=== PATIENT | female | born 1935 | race Caucasian/White ===

== ENCOUNTER → 2016-05-18 | Outpatient (REF) | payer MEDICARE ==
[2016-05-18 15:26] LABS: BASOPHILS % (AUTO) 0 % (0-2); EOSINOPHILS # (AUTO) 0.1 10^3uL; EOSINOPHILS % (AUTO) 1 % (0-4); LYMPHOCYTES # (AUTO) 2.2 X10^3; MEAN CORPUSCULAR HEMOGLOBIN 32.2 PG (26.0-34.0); MEAN CORPUSCULAR HGB CONC 34.7 g/dL (31.0-37.0); MEAN CORPUSCULAR VOLUME 93 FL (80-100); MEAN PLATELET VOLUME 10.6 FL (6.0-9.5); MONOCYTES # (AUTO) 0.6 X10^3; MONOCYTES % (AUTO) 8 % (3-11); NEUTROPHILS # (AUTO) 4.1 X10^3; NEUTROPHILS % (AUTO) 59 % (51-67); PLATELET COUNT 227 10^3uL (150-450); WHITE BLOOD COUNT 7.06 10^3uL (4.0-11.0)
[2016-05-18 15:52] LABS: ALBUMIN 4.1 g/dL (3.4-5.0); ANION GAP 10.9 MEQ/L (3-15); CALCULATED IONIZED CALCIUM 3.6 mg/dL (3.8-4.6); TOTAL PROTEIN 8.5 g/dL (6.4-8.5)
[2016-05-22 15:55] LABS: LEVETIRACETAM LEVEL 59.6 mcg/mL
== END ==
LOC: LAB 15:05
PROVIDERS: ATTEND Family Medicine
DX: G40.209 Localization-related (focal) (partial) symptomatic epilepsy and epileptic syndromes with complex partial seizures, not intractable, without status epilepticus (principal); I48.0 Paroxysmal atrial fibrillation; J43.2 Centrilobular emphysema; E56.8 Deficiency of other vitamins; F02.80 Dementia in other diseases classified elsewhere, unspecified severity, without behavioral disturbance, psychotic disturbance, mood disturbance, and anxiety; G89.29 Other chronic pain; Z79.899 Other long term (current) drug therapy
CPT/HCPCS: 80053; 80162; 80177; 82306; 82607; 82746; 84443; 85025

== ENCOUNTER → 2016-06-08 | Outpatient (CLI) | payer MEDICARE | LOC: RAD 15:12 | PROVIDERS: ATTEND Family Medicine | DX: M25.521 Pain in right elbow (principal) | CPT/HCPCS: 73080 ==

== ENCOUNTER → 2016-07-06 | Outpatient (CLI) | payer MEDICARE ==
[~2016-07-06] MED LIST: AGM500T GT; BACL10TA PO; BCL10T PO; CITA20TA12 PO; CITA40TA19 PO; CPR500T PO; D50KC PO; DGX.125T PO; DOCU100C8 PO; FERR325T5 PO; HYDR-3708 PO; HYDR-3882 PO; IBUP-15 PO; IPRA3AMP11 INH; LEVE250T18 PO; LEVE500T PO; MAGN400O7 PO; MIRA25TA PO; MORPHINE PUMP; Morphine; NITR100C3 PO; POLY17PO6 PO; POTA10CA2 PO; TIOT18CA IH
[2016-07-06 10:47] LABS: BILIRUBIN,URINE Negative (Negative); CLARITY,URINE Turbid; COLOR,URINE Yellow; GLUCOSE, URINE (UA) Negative (Negative); LEUKOCYTE ESTERASE ,URINE 3+ (Negative); PH,URINE 6.5 (5.0 - 8.0); UROBILINOGEN,URINE 0.2 mg/dL (0.2-1.0)
[2016-07-06 11:15] LABS: URINE CENTRIFUGED VOLUME 12 mL
== END ==
LOC: LAB 10:14
PROVIDERS: ATTEND Family Medicine
DX: R30.0 Dysuria (principal)
CPT/HCPCS: 81003; 81015; 87077; 87088; 87186

== ENCOUNTER 2016-07-13 17:31 | Inpatient (IN) | payer MEDICARE ==
[~2016-07-13] VITALS: Ht 160 cm; Wt 60.8 kg
--- NOTE | 2016-07-13 17:15 | NUR ---
Pt admitted to [facility] via w/c accompanied by daughter in law. Skin warm, dry, intact. Resprs nonlabored, even on RA. Pt denies pain. Daughter in law states pt has been increasingly confused over the past week. See admission database for assessment info.
[~2016-07-13 17:31] MED LIST changes: -CITA40TA19 PO; -ERGO2000 PO; -FLC1T PO; -LEVE250T18 PO; -MEMA28CA PO; -NITR100C3 PO; -Oxygen
--- OUTSIDE RECORDS SUMMARY | 2016-07-13 17:34 | XMS REPORT | Continuity of Care Document ---
Author Author [facility] Organization [facility] Address Unknown Phone Unavailable Care Team Providers Care Family Caseworker Name Role Phone CYNTHIA ANTONIO MD PCP [phone] Insurance Providers Payer Name Policy Number Subscriber Name Relationship Medicare A And B [id number] Sally Uribe 18 Self / Same As Patient [employer] Mc[employer] Supp [id number] Sally Uribe 18 Self / Same As Patient Chief Complaint and Reason for Visit Chief Complaint Genitourinary Complaint Reason for Visit [id number] Urinary tract infection Problems Medical Problems Problem Onset Date Status Acute cystitis 08/22/2012 Resolved Constipation 08/22/2012 Active Chronic low back pain 10/19/2012 Active Urinary retention ~10/27/2014 Active COPD (chronic obstructive pulmonary disease) Unknown Active Inability to urinate Unknown Active Urinary tract infection Unknown Active Medications Medication Dose Route Sig Days/Qty Instructions Order Date Discontinued Date Status Baclofen 10 Mg ORAL THREE TIMES A DAY 08/22/12 10/19/12 Discontinued [Morphine] 08/22/12 10/19/12 Discontinued Amoxicillin/Clavulanate K 875 Mg GT TWICE A DAY 6 Qty One po BID w/food x 3 days 08/22/12 10/19/12 Discontinued Baclofen (Lioresal) 10 Mg ORAL THREE TIMES A DAY 10/19/12 Active Hydrocodone Bit/Acetaminophen 1 Tab ORAL NEEDED 10/19/12 Discontinued [Morphine Pump] 10/19/12 Active Hydrocodone Bit/Acetaminophen 1 Each ORAL EVERY 4HRS PRN PAIN Active Tiotropium [place] 18 Mcg RESPIRATORY (INHALATION) DAILY 10/27/14 Active Citalopram Hydrobromide 20 Mg ORAL DAILY 10/27/14 Active Ciprofloxacin 500 Mg ORAL TWICE A DAY 10 Qty 10/31/14 Active Social History No social history. Hospital Discharge Instructions No hospital discharge instructions. Plan of Care Discharge Date 10/31/14 1:15pm Disposition 01 HOME OR SELF-CARE Instructions/Education Provided Urinary Tract Infection in Women (ED) Prescriptions See Medications Section Referrals CYNTHIA ANTONIO MD Additional Instructions/Education Corea catheter out tomorrow after antibiotics have time to start to work. See Dr. House or return to ED if pain worsens or changes. You may need to see a urologist due to the pain. Some of your test results may not be complete prior to your leaving the Emergency Department. The Emergency Department is not authorized to give test results over the phone. Please contact the doctor's office listed in this packet of information for your final results. Follow up with your primary care physician or return to the Emergency Department for worsening or worrisome symptoms. * Emergency Department phone number: [phone], x [phone] MEDICAL RECORD If you need copies of your X-rays, call [phone]. If you need copies of your medical record, including lab results, a signed authorization for release of records will be required. A telephone call for release of Health Information is not allowed. BILLING Billing can sometimes be confusing and frustrating. To help avoid confusion in the future, please take a moment to acquaint yourself with the billing parties for services. SERVICE BILLING [facility] Physician Services [facility] X-[facility] Patients will receive bills for services from the appropriate provider. If you have any questions about your [facility] bill, our staff will be happy to assist you. Please call [phone], and ask for the billing department. THANK YOU for choosing [facility] as your emergency care provider! Functional Status No functional status results. Allergies, Adverse Reactions, Alerts Allergen Type Severity Reaction Status Last Updated No Known Drug Allergies Active 10/31/14 Immunizations No immunization records. Vital Signs Acute Vital Signs Vital Response Date/Time Temperature (Fahrenheit) 98.2 Pulse 94 bpm Respirations 18 Height 5 ft 7 in Weight 144 lb Body Mass Index 22.0 kg/m^2 Results Test Source Date Result Interp. Ref. Range Comments Alanine Aminotransferase (ALT/SGPT) August 22, 2012 7:45am 27 U/L L 30-65 Albumin August 22, 2012 7:45am 4.7 G/DL N 3.4-5.0 Albumin/Globulin Ratio August 22, 2012 7:45am 4.4 H 1.1-1.8 Alkaline Phosphatase August 22, 2012 7:45am 64 U/L N 38-126 Amylase Level August 22, 2012 7:45am 58 U/L N 25-115 Aspartate Amino Transf (AST/SGOT) August 22, 2012 7:45am 32 U/L N 15-37 BUN/Creatinine Ratio August 22, 2012 7:45am 13 N 10-20 Basophils # (Auto) August 22, 2012 7:45am 0.0 10^3/uL Basophils (%) (Auto) August 22, 2012 7:45am 0 % N 0-2 Blood Urea Nitrogen August 22, 2012 7:45am 8 MG/DL N 7-18 Calcium Level August 22, 2012 7:45am 9.6 MG/DL N 8.8-10.8 Calcium/Ionized Calcium Ratio August 22, 2012 7:45am 3.00 mg/dL Calculated Osmolality August 22, 2012 7:45am 268 MOSM/L L 280-300 Carbon Dioxide Level August 22, 2012 7:45am 30 MMOL/L H 22-29 Chloride Level August 22, 2012 7:45am 96 MMOL/L L 98-108 Creatinine August 22, 2012 7:45am 0.60 mg/dL N 0.6-1.2 Eosinophils # (Auto) August 22, 2012 7:45am 0.1 10^3/uL Eosinophils (%) (Auto) August 22, 2012 7:45am 1 % N 0-4 Estimat Glomerular Filtration Rate August 22, 2012 7:45am 117.3 Estimated GFR (Non- August 22, 2012 7:45am 96.9 Glucose Level August 22, 2012 7:45am 120 MG/DL H 70-110 Hematocrit August 22, 2012 7:45am 41.30 % N 35.00-45.00 Hemoglobin August 22, 2012 7:45am 14.3 g/dL N 12.0-15.5 Lipase August 22, 2012 7:45am 70 U/L N 23-300 Lymphocytes # (Auto) August 22, 2012 7:45am 1.3 X 10^3 Lymphocytes (%) (Auto) August 22, 2012 7:45am 14 % L 20-46 Mean Corpuscular Hemoglobin August 22, 2012 7:45am 34.0 PG N 26.0-34.0 Mean Corpuscular Hemoglobin Concent August 22, 2012 7:45am 34.6 g/dL N 31.0-37.0 Mean Corpuscular Volume August 22, 2012 7:45am 98 FL N 80-100 Mean Platelet Volume August 22, 2012 7:45am 9.6 FL H 6.0-9.5 Monocytes # (Auto) August 22, 2012 7:45am 0.4 X 10^3 Monocytes (%) (Auto) August 22, 2012 7:45am 4 % N 3-11 Neutrophils # (Auto) August 22, 2012 7:45am 7.3 X 10^3 Neutrophils (%) (Auto) August 22, 2012 7:45am 81 % H 51-67 Platelet Count August 22, 2012 7:45am 242 10^3/uL N 150-450 Potassium Level August 22, 2012 7:45am 3.7 MMOL/L N 3.5-5.1 Red Blood Count August 22, 2012 7:45am 4.20 10^6/uL N 4.00-5.00 Red Cell Distribution Width August 22, 2012 7:45am 12.6 % N 11.8-15.6 Sodium Level August 22, 2012 7:45am 139 MMOL/L N 135-150 Total Bilirubin August 22, 2012 7:45am 0.7 MG/DL N 0.1-1.0 Total Protein August 22, 2012 7:45am 9.1 G/DL H 6.4-8.5 Urine Bacteria October 31, 2014 12:00pm 1+ /HPF Urine collection method Catheter Urine Bilirubin October 31, 2014 12:00pm Negative Negative Urine collection method Catheter Urine Blood July 08, 2013 11:00am Negative Negative Urine Clarity October 31, 2014 12:00pm Cloudy Urine collection method Catheter Urine Collection Type October 31, 2014 12:00pm Clean catch Urine collection method Catheter Urine Color October 31, 2014 12:00pm Yellow Urine collection method Catheter Urine Glucose (UA) October 31, 2014 12:00pm Negative Negative Urine collection method Catheter Urine Ketones October 31, 2014 12:00pm Negative Negative Urine collection method Catheter Urine Leukocyte Esterase October 31, 2014 12:00pm 2+ H Negative Urine collection method Catheter Urine Mucus October 31, 2014 12:00pm 2+ H Urine collection method Catheter Urine Nitrite October 31, 2014 12:00pm Negative Negative Urine collection method Catheter Urine Protein October 31, 2014 12:00pm Negative Negative Urine collection method Catheter Urine RBC October 31, 2014 12:00pm None seen /HPF Urine collection method Catheter Urine RBC (Auto) October 31, 2014 12:00pm Negative Negative Urine collection method Catheter Urine Specific [place] October 31, 2014 12:00pm 1.010 1.005-1.030 Urine collection method Catheter Urine Squamous Epithelial Cells October 31, 2014 12:00pm 20-50 /LPF Urine collection method Catheter Urine Urobilinogen October 31, 2014 12:00pm 0.2 mg/dL 0.2-1.0 Urine collection method Catheter Urine WBC October 31, 2014 12:00pm 10-20 /HPF H Urine collection method Catheter Urine pH October 31, 2014 12:00pm 7.0 5.0 - 8.0 Urine collection method Catheter Volume Urine Centrifuged October 31, 2014 12:00pm 12 ml Urine collection method Catheter White Blood Count August 22, 2012 7:45am 9.05 10^3/uL N 4.0-11.0 Urine Culture Urine-Clean Catch July 08, 2013 11:00am Procedures No known history of procedures. Encounters Encounter Location Date/Time Departed Emergency Room [facility] 10/31/14 11:20am Departed Emergency Room [facility] 10/27/14 3:21am Recent Diagnosis
--- NOTE | 2016-07-13 18:45 | NUR ---
20g in LFA initiated by Jasmeet Bagley RN on 2nd attempt after 2 attempts by Courtney Rebolledo RN. Pt rests in bed at this time. Denies needs. Fall precautions in place. Close to nurses station for frequent monitoring.
[2016-07-13] MEDS ORDERED: POLYETHYLENE GLYCOL 17 GM (MIRALAX) PACKET PO PRN (19:20)
[2016-07-13] MEDS ORDERED: ONDANSETRON 4 MG (ZOFRAN) ORAL DISSOLVE TAB PO PRN (19:20)
[2016-07-13] MEDS ORDERED: CALCIUM CARBONATE CHEWABLE 300 MG (TUMS) TABLET PO PRN (19:20)
[2016-07-13] MEDS ORDERED: PROMETHAZINE HCL INJ 12.5 MG in SODIUM CHLORIDE 25 ML IV PRN (19:20)
[2016-07-13] MEDS ORDERED: MAG HYDROX/AL HYDROX/SIMETH 200-200-20/5 ML (MAG-AL PLUS) 30 ML UDC PO PRN (19:20)
[2016-07-13] MEDS ORDERED: MAGNESIUM HYDROXIDE 80MG/ML (MILK OF MAGNESIA) 30 ML UDC PO PRN (19:20)
[2016-07-13] MEDS ORDERED: SODIUM CHLORIDE 100 ML ONE (19:30)
[2016-07-13] MEDS ORDERED: MEROPENEM 1 GM IV ONE (19:30)
[2016-07-13] MEDS ORDERED: CITA40TA19 PO (19:52)
[2016-07-13] MEDS ORDERED: LEVE250T18 PO (19:57)
[2016-07-13] MEDS ORDERED: NITR100C3 PO (19:59)
[2016-07-13] MEDS: MEROPENEM 1 GM in SODIUM CHLORIDE 100 ML IV SCH (20:02)
[2016-07-13] MEDS ORDERED: ALBUTEROL/IPRATROPIUM 3MG-0.5MG/3ML (DUONEB) NEB VIAL INH PRN (21:20)
--- NOTE | 2016-07-13 21:22 | History and Physical (E) ---
History & Physical PCP: Evangelist Bowen MD CC: UTI, falls at home. ANNAMARIA Uribe is a 80 year old female admitted from clinic 07/13 where she presented with worse mental status, falls at home, poor appetite, increased confusion. She has been treated outpatient for UTI that grew E. coli. She was switched from Bactrim to nitrofurantoin based on sensitivity. She had follow-up in clinic today. WBC 12.26 with no bandemia. Chemistry stable. Digoxin 1.10. New urine was not checked. Because of falls at home, CT head, pelvis, L-spine were checked and all were negative for acute changes. However, because of continual decline, PCP called asking for admission. On arrival to unit, vitals stable but she is somnolent. She does not provide any history. Ibxwzems-rk-ukf provides history. Had UTI symptoms about 1 week ago but on Saturday, changed because of culture results. Today she was taken to [place] [facility] for refill of morphine. On the drive back from [place], agvifndn-ql-thd noticed marked increase in confusion. Vkbhgyjq-qw-ocp got her back in clinic with PCP late this afternoon and she was looking more and more ill, though vitals were stable. Labs as noted below. For this concerns, she was admitted. Has been living in an apartment independently with her dog. But she has fallen multiple times. Mental status has declined significantly over the last several days but even before that she had a general decline in memory and was falling more at home. PMH * Chronic pain issues * Scoliosis * Arthritis * Spinal stenosis * Irritable bowel * Urinary retention * COPD--sees Dr. Hernandez * ONI * Tobaccoism * Anxiety * Depression * Chronic back pain on morphine pain pump * pneumonia * atrial fibrillation with RVR * aspiration PSH * Hysterectomy--1978 * Right knee replacement--2005 * Pain pump placement--2006, again in December 2015. * Bronchoscopy--about a month ago with Dr. Hernandez. * T&A as a child ALLERGIES: Please see list at end of report. HOME MEDICATIONS: Please see list at end of report. FH Mother lung disease. Father unknown. Sibling from DM. Another sister from a traumatic . A living sister has COPD and has survived breast cancer. Daughter from [place]-Spatz syndrome, son with alcoholism, son with IDDM, and daughter that was still-born. SH Lives now with son and mwkmkci-qg-flt. 1 ppd x 60 years. No alcohol or drug use. ROS Unable to obtain from patient. Obtained from ncrdcagc-ev-dxe. CONSTITUTION: Weight stable. No reported fever. HEENT: No reports of vision or hearing changes. PULM: Chronic cough. GI: Chronic constipation. PSYCH: Decreased level of consciousness, increased confusion. OBJECTIVE Vital Signs Date Time Temp Pulse Resp B/P Pulse Ox O2 Delivery O2 Flow Rate FiO2 07/13/16 18:11 98.3 72 18 84 Room air GEN: Awake, alert, oriented, NAD HEENT: EOMI, PERRL, moist oral mucosa. CV: RRR S1 S2 normal with no murmur LUNGS: CTA B ABD: Soft, NT/ND with normal bowel sounds. EXTR: No C/C/E. Normal peripheral pulses. INTEG: No rash. NEURO: No focal motor neuro deficit. Weight: 61.7 kg LABS: Reviewed MICRO SPEC #: [id number] BREANA: 07/06/16 STATUS: COMP REQ #: [id number] RECD: 07/06/[address]: EVANGELIST BOWEN MD Order Location: LAB SOURCE: URINE DESCRIPTION: CLEAN CATC Procedure Result Verified URINE CULTURE Final Verified 07/09/16-07 AM Source: URINE / CLEAN CATCH Order Location: LABORATORY Site: [facility] Received : 07/06/16 16:33 Order#: [id number] Urine Culture FINAL 07/09/16 07:00 S Escherichia coli >100,000 cfu/ml This strain produces extended spectrum beta lactamase ( ESBL) E. coli Antibiotic SERENE INT Amikacin <=2 S Ampicillin >=32 R Ampicillin/sulbactam 16 I Cefazolin >=64 R Ceftriaxone >=64 R Ciprofloxacin >=4 R Gentamicin >=16 R Meropenem <=0.25 S Nitrofurantoin <=16 S Trimethoprim/Sulfa >=320 R S=SUSCEPTIBLE I=INTERMEDIATE R=RESISTANT S-DD= SUSCEPTIBLE, DOSE DEPENDENT IMAGING 07/13/16 LUMBOSACRAL SPINE 4 VIEWS OR > EXAM: LUMBOSACRAL SPINE 4 VIEWS OR > INDICATION: Fall. Back pain. COMPARISON: Lumbar spine CT without contrast 2012. Abdominal radiographs 06/20/2015. FINDINGS: There are five lumbar type vertebral bodies. There is moderate to advanced left apex lumbar curvature centered at L3-L4. Stable moderate rightward listhesis of L2 on L3. Vertebral body heights appear maintained. There are laminectomies at L3-L5. Moderate to advanced degenerative endplate changes most marked at L3-L5. Intrathecal pain pump. The catheter tip remains at the level of L1, similar to the prior exam. The course of the catheter appears intact. Coarse arterial calcifications. Mild compression deformities of the T9 and T10 vertebral bodies appear to be new since the 06/20/2015 abdominal radiographs. Comparison is limited by differences in technique and positioning. IMPRESSION: 1. No acute radiographic findings in the lumbar spine. There are moderate to advanced spondylotic changes. 2. Mild compression deformities of the T9 and T10 vertebral bodies appear to be new since the 06/20/2015 abdominal radiographs. This could be confirmed with thoracic spine MRI without contrast. 07/13/16 CT HEAD WO PROCEDURE: CT head without contrast. TECHNIQUE: Multiple contiguous axial images were obtained through the brain without the use of intravenous contrast. INDICATION: Multiple falls. COMPARISON: 06/28/2015. FINDINGS: There is generalized cortical atrophy. Ventricles are not dilated. There is no intracranial hemorrhage. No extra-axial fluid collection. Basal cisterns are clear. CP angles appear normal. Pituitary is not enlarged. The mastoid air cells are clear. Paranasal sinuses are clear where visualized. Bone windows show no calvarial fractures. IMPRESSION: Generalized cortical atrophy with no acute intracranial abnormalities. 07/13/16 PELVIS INDICATION: Fall. Complaining of left hip pain. FINDINGS: Bony pelvis is intact. SI joints are symmetrical with moderate sclerosis. Pubic symphysis is in good alignment. Femoral heads are in normal articulation bilaterally. No fractures of the hips demonstrated. Moderate degenerative changes noted. IMPRESSION: Diffuse degenerative changes with no evidence of acute fracture. ASSESSMENT Sally Uribe is a 80 year old female admitted from clinic 07/13 with encephalopathy in the setting of recent diagnosis of UTI due to ESBL E coli. She had been treated for 4 days with nitrofurantoin but had not been improving clinically. Though she did not meet sepsis criteria there was concern for this on admit. She has numerous chronic problems. PLAN * Possible Sepsis: Monitor labs and vitals closely. Blood culture pending. Empiric meropenem. * UTI due to ESBL E coli: Treated outpatient with nitrofurantoin but not improving. Culture as noted. New UA. Check CRP. Meropenem. * Encephalopathy: Attributed to UTI, possible sepsis. Check TSH, ammonia. Monitor labs. Maintain day/night orientation. * Dehydration: Clinical diagnosis. NS maintenance x 1 L. * F/E/N: Cardiac diet. Pudding thick liquids. Peripheral IV x 2. I&O, daily weight. PICC placed 06/24. Removed connolly 06/25. * Prophylaxis: Enoxaparin * Code Status: DNR. * Disposition: ICU status for above issues initially, then transferred to med/ surg once off dopamine. Anticipate need for skilled care. Family touring regional facilities. Possible D/C in 1-2 though this may need to be extended a bit in light of recent seizure and persistent urinary retention. CHRONIC ISSUES * Dysphagia: Mechanical soft, nectar thick liquids. * Tobacco abuse: Nicotine * Vitamin D Deficiency: History of taking ergocalciferol. Review history form PCP's records. * Muscle Spasms: Hold baclofen * Anxiety: Citalopram * Depression: Citalopram * Atrial fibrillation: Digoxin * Chronic Pain: Morphine pump. Avoid narcotic escalation. * Seizure Disorder: Levetiracetam * IBS: Observe. Bowel regimen. * ONI: Home CPAP * COPD: Not acutely exacerbated. Duoneb PRN. Review home regimen,. * Constipation: Bowel regimen * Chronic Back Pain: Morphine pump. [place] PRN. Monitor narcotic use closely. Naloxone PRN over-sedation. * Bladder Spasms, Retention: Takes mirabegron at home but ipmepend-rq-lgz feels this doesn't work. Trial of solifenacin which she has taken previously. Allergies/Home Medications Allergies: Coded Allergies: aspirin (Verified Allergy, Intermediate, 06/20/15) Reported Home Medications Scheduled ([Morphine Pump]) 1 UD (Reported) Baclofen (Baclofen) 10 MG PO BID (Reported) Citalopram Hydrobromide (Celexa) 40 MG PO DAILY (Reported) Digoxin (Lanoxin) 0.125 MG PO DAILY Ergocalciferol (Vitamin D2) 50,000 UNITS PO Tu@09 Levetiracetam (Keppra) 250 MG PO BID (Reported) Magnesium Hydroxide (Milk of Magnesia 400mg/5ml) 30 ML PO DAILY (Reported) Nitrofurantoin/Nitrofuran Mac (Macrobid) 100 MG PO DAILY (Reported) Polyethylene Glycol 3350 (Miralax) 17 GM PO DAILY (Reported) Scheduled PRN Docusate Sodium (Docusate Sodium) 100 MG PO DAILY PRN PRN CONSTIPATION (Reported ) Hydrocodone Bit/Acetaminophen (Hydrocodon-Acetaminophen 10-325) 1-2 TAB PO Q4H PRN PRN PAIN (Reported) Discontinued Medications Albuterol/Ipratropium (Duoneb 3mg-0.5mg/3ml) 3 ML INH BID Discontinued Reason: Course completed Citalopram Hydrobromide (Celexa) 20 MG PO DAILY (Reported) Discontinued Reason: Dose changed Ferrous Sulfate (Ferrous Sulfate) 325 MG PO BID WITH MEALS Discontinued Reason: Course completed Ibuprofen (Motrin IB) 200-400 MG PO Q6H PRN PRN PAIN (Reported) Discontinued Reason: Course completed Levetiracetam (Keppra) 500 MG PO BID Discontinued Reason: Dose changed Copies to: End of Report . AUGUSTO MARTIN MD Jul 13, 2016 19:24
[2016-07-14 00:21] VITALS: BP 109/50
[2016-07-14 04:10] VITALS: BP 110/56
[2016-07-14 06:03] LABS: BASOPHILS % (AUTO) 0 % (0-2); EOSINOPHILS # (AUTO) 0.1 10^3uL; EOSINOPHILS % (AUTO) 1 % (0-4); MEAN CORPUSCULAR HGB CONC 33.6 g/dL (31.0-37.0); MEAN CORPUSCULAR VOLUME 93 FL (80-100); MONOCYTES # (AUTO) 0.7 X10^3; MONOCYTES % (AUTO) 8 % (3-11); NEUTROPHILS # (AUTO) 7.2 X10^3; NEUTROPHILS % (AUTO) 80 % (51-67); PLATELET COUNT 160 10^3uL (150-450); WHITE BLOOD COUNT 9.04 10^3uL (4.0-11.0)
[2016-07-14 06:22] LABS: MEAN CORPUSCULAR HEMOGLOBIN 31.3 PG (26.0-34.0)
[2016-07-14] MEDS: MEROPENEM 1 GM in SODIUM CHLORIDE 100 ML IV SCH ×2 (06:34→19:17)
[2016-07-14 06:58] LABS: ALBUMIN 2.8 g/dL (3.4-5.0); ANION GAP 11.9 MEQ/L (3-15)
--- NOTE | 2016-07-14 07:32 | NUR ---
Patient rests in bed throughout night with minimal needs. Difficult to rouse during night. Up to bathroom x2, unable to obtain UA d/t missed hat. No reports of pain throughout night. No needs at this time.
[2016-07-14 07:57] VITALS: BP 103/50
--- NOTE | 2016-07-14 08:26 | Diagnostic Imaging Report ---
INDICATION: Dyspnea and hypoxia. Comparison made with prior examination from 06/25/15. FINDINGS: There's cardiomegaly. There is some venous congestion. There is bibasilar atelectasis and/or pneumonitis on the left. There is some more nodular appearing densities in the left midlung. There is no pneumothorax. The mediastinum is unremarkable. IMPRESSION: Bibasal atelectasis and/or pneumonitis right greater than left. Cardiomegaly and moderate central pulmonary venous congestion. Questionable nodular appearing densities in the left midlung. While these may be infiltrates possibility of underlying mass cannot be excluded. Further evaluation with contrast-enhanced CT chest is recommended. Dictated by: Dictated on workstation # [id number]
[2016-07-14 09:26] LABS: BILIRUBIN,URINE Negative (Negative); CLARITY,URINE Cloudy; GLUCOSE, URINE (UA) Negative (Negative); LEUKOCYTE ESTERASE ,URINE 1+ (Negative); PH,URINE 5.5 (5.0 - 8.0); UROBILINOGEN,URINE 0.2 mg/dL (0.2-1.0)
[2016-07-14 09:29] LABS: COLOR,URINE Dark Yellow
--- NOTE | 2016-07-14 09:35 | NUR ---
Pt. sleeping with 83% O2 sat's. Replaced O2 @ 2L nc.
[2016-07-14] MEDS: ACETAMINOPHEN 325 MG TAB (TYLENOL) PO PRN ×2 (09:39→20:23)
[2016-07-14] MEDS: CITALOPRAM 40 MG (CELEXA) TABLET PO SCH (09:39)
[2016-07-14] MEDS: DIGOXIN 0.125 MG (LANOXIN) TAB PO SCH (09:39)
[2016-07-14] MEDS: LEVETIRACETAM 250 MG PO SCH ×3 (09:39→20:22)
[2016-07-14] MEDS: ENOXAPARIN 30 MG/0.3 ML (LOVENOX) SYR SC SCH (09:40)
[2016-07-14] MEDS: NICOTINE 21 MG (NICODERM) PATCH TD SCH (09:40)
[2016-07-14 10:06] LABS: URINE CENTRIFUGED VOLUME 12 mL
[2016-07-14 11:56] VITALS: BP 103/48
[2016-07-14] MEDS ORDERED: FLC1T PO (12:04)
[2016-07-14] MEDS ORDERED: MEMA28CA PO (12:08)
[2016-07-14] MEDS ORDERED: ERGO2000 PO (12:08)
[2016-07-14] MEDS ORDERED: Oxygen (12:08)
--- NOTE | 2016-07-14 12:11 | NUR ---
Med Rec completed via call reviewing medications with Danisha Uribe.
[2016-07-14 15:48] VITALS: BP 113/51
--- NOTE | 2016-07-14 16:26 | Progress Note (E) ---
Progress Note SUBJECTIVE Since admit, vitals stable but has been on oxygen overnight. Room air this AM. CBC stable. No bandemia. Chemistry stable but CTP high at 14.10. Ammonia 14.5. UA did show LE and WBC so culture pending. On meropenem for concern of unresolved UTI prior to admit. On exam, resting in bed but stirs better to exam , is able to answer questions and follow commands. Groggy but oriented to person , place, situation. Disoriented to date but oriented to year. Speech is slow but clear. Updated her on findings, plan of care. OBJECTIVE Vital Signs Date Time Temp Pulse Resp B/P Pulse Ox O2 Delivery O2 Flow Rate FiO2 07/14/16 15:48 97.0 55 18 113/51 94 Room air 07/14/16 07:57 2.50 I & O 07/13/16 07/14/16 Cumulative From/Thru 19:00 07:00 07/13/16 18:11 - 07/14/16 06:35 Intake Total 300 ml 300 ml Output Total 100 ml 100 ml Balance 200 ml 200 ml GEN: Somnolent but stirs more readily to exam. More interactive and following commands, answering questions. HEENT: Eyes closed. Dry oral mucosa. Edentulous but has dentures. CV: Regular with II/ systolic murmur at LSB. LUNGS: Diminished bases without R/R/W. ABD: Soft, no apparent tenderness, no distension. Active bowel sounds. EXTR: Trace BLE edema. INTEG: Age related changes. Mild pallor. Warm, dry. NEURO: Psychomotor slowing. No apparent focal motor neuro deficit. Lab-Past 14 Days, 35 Results 07/13/16 09:10: Urine Bacteria Rare, Urine Bilirubin Negative, Urine Blood Trace-lysedH, Urine Clarity Cloudy, Urine Collection Type Clean catch, Urine Color Dark yellow, Urine Glucose (UA) Negative, Urine Ketones TraceH, Urine Leukocyte Esterase 1+H , Urine Microscopic RBC 5-10H, Urine Mucus Rare, Urine Nitrite Negative, Urine Protein 1+H, Urine Specific [place] 1.015, Urine Squamous Epithelial Cells 5-10 , Urine Urobilinogen 0.2, Urine WBC 20-50H, Urine pH 5.5, Volume Urine Centrifuged 12 ml 07/14/16 05:20: Albumin 2.8#L, Ammonia 14.5, Anion Gap 11.9, Basophils # (Auto) 0.0, Basophils ( %) (Auto) 0, Blood Urea Nitrogen 25H, C-Reactive Protein 14.10H, Calcium Level 8.5L, Carbon Dioxide Level 28, Chloride Level 105, Creatinine 0.73, Eosinophils # (Auto) 0.1, Eosinophils (%) (Auto) 1, Estimat Glomerular Filtration Rate 92.6 , Estimated GFR (Non- 76.5, Glucose Level 93#, Hematocrit 34.20L , Hemoglobin 11.5L, Lymphocytes # (Auto) 1.0, Lymphocytes (%) (Auto) 11L, Mean Corpuscular Hemoglobin 31.3, Mean Corpuscular Hemoglobin Concent 33.6, Mean Corpuscular Volume 93, Mean Platelet Volume 11.0H, Monocytes # (Auto) 0.7, Monocytes (%) (Auto) 8, Neutrophils # (Auto) 7.2, Neutrophils (%) (Auto) 80H, Phosphorus Level 3.3, Platelet Count 160, Potassium Level 4.1, Red Blood Count 3.67L, Red Cell Distribution Width 12.9, Sodium Level 140, White Blood Count 9.04 MICRO 07/13 Blood culture PENDING 07/13 Urine culture PENDING SPEC #: [id number] BREANA: 07/06/16 STATUS: COMP REQ #: [id number] RECD: 07/06/16-1035 [facility] DR: CYNTHIA ANTONIO MD Order Location: LAB SOURCE: URINE DESCRIPTION: CLEAN CATC Procedure Result Verified URINE CULTURE Final Verified 07/09/16-0701 AM Source: URINE / CLEAN CATCH Order Location: LABORATORY Site: [facility] Received : 07/06/16 16:33 Order#: [id number] Urine Culture FINAL 07/09/16 07:00 S Escherichia coli >100,000 cfu/ml This strain produces extended spectrum beta lactamase ( ESBL) E. coli Antibiotic SERENE INT Amikacin <=2 S Ampicillin >=32 R Ampicillin/sulbactam 16 I Cefazolin >=64 R Ceftriaxone >=64 R Ciprofloxacin >=4 R Gentamicin >=16 R Meropenem <=0.25 S Nitrofurantoin <=16 S Trimethoprim/Sulfa >=320 R S=SUSCEPTIBLE I=INTERMEDIATE R=RESISTANT S-DD= SUSCEPTIBLE, DOSE DEPENDENT IMAGING 07/13/16 LUMBOSACRAL SPINE 4 VIEWS OR > EXAM: LUMBOSACRAL SPINE 4 VIEWS OR > INDICATION: Fall. Back pain. COMPARISON: Lumbar spine CT without contrast 2012. Abdominal radiographs 06/20/2015. FINDINGS: There are five lumbar type vertebral bodies. There is moderate to advanced left apex lumbar curvature centered at L3-L4. Stable moderate rightward listhesis of L2 on L3. Vertebral body heights appear maintained. There are laminectomies at L3-L5. Moderate to advanced degenerative endplate changes most marked at L3-L5. Intrathecal pain pump. The catheter tip remains at the level of L1, similar to the prior exam. The course of the catheter appears intact. Coarse arterial calcifications. Mild compression deformities of the T9 and T10 vertebral bodies appear to be new since the 06/20/2015 abdominal radiographs. Comparison is limited by differences in technique and positioning. IMPRESSION: 1. No acute radiographic findings in the lumbar spine. There are moderate to advanced spondylotic changes. 2. Mild compression deformities of the T9 and T10 vertebral bodies appear to be new since the 06/20/2015 abdominal radiographs. This could be confirmed with thoracic spine MRI without contrast. 07/13/16 CT HEAD WO PROCEDURE: CT head without contrast. TECHNIQUE: Multiple contiguous axial images were obtained through the brain without the use of intravenous contrast. INDICATION: Multiple falls. COMPARISON: 06/28/2015. FINDINGS: There is generalized cortical atrophy. Ventricles are not dilated. There is no intracranial hemorrhage. No extra-axial fluid collection. Basal cisterns are clear. CP angles appear normal. Pituitary is not enlarged. The mastoid air cells are clear. Paranasal sinuses are clear where visualized. Bone windows show no calvarial fractures. IMPRESSION: Generalized cortical atrophy with no acute intracranial abnormalities. 07/13/16 PELVIS INDICATION: Fall. Complaining of left hip pain. FINDINGS: Bony pelvis is intact. SI joints are symmetrical with moderate sclerosis. Pubic symphysis is in good alignment. Femoral heads are in normal articulation bilaterally. No fractures of the hips demonstrated. Moderate degenerative changes noted. IMPRESSION: Diffuse degenerative changes with no evidence of acute fracture. ASSESSMENT Sally Uribe is a 80 year old female admitted from clinic 07/13 with encephalopathy in the setting of recent diagnosis of UTI due to ESBL E coli. She had been treated for 4 days with nitrofurantoin but had not been improving clinically. Though she did not meet sepsis criteria there was concern for this on admit. She has numerous chronic problems. PLAN * Possible Sepsis: Monitor labs and vitals closely. Blood culture pending. Empiric meropenem. * UTI due to ESBL E coli: Treated outpatient with nitrofurantoin but not improving. Culture as noted. New urine culture pending. CRP elevated. Meropenem. * Encephalopathy: Attributed to UTI, possible sepsis. TSH pending. Ammonia within normal limits. Monitor labs. Maintain day/night orientation. * Dehydration: Clinical diagnosis. NS maintenance x 1 L. * F/E/N: Mechanical soft, nectar thick liquids. Peripheral IV. I&O, daily weight. * Prophylaxis: Enoxaparin * Code Status: DNR. * Disposition: Observation based on labs but concern for underlying sepsis. Utilization review pending. CHRONIC ISSUES * Dysphagia: Mechanical soft, nectar thick liquids. * Tobacco abuse: Nicotine * Vitamin D Deficiency: History of taking ergocalciferol. Review history form PCP's records. * Muscle Spasms: Hold baclofen * Anxiety: Citalopram * Depression: Citalopram * Atrial fibrillation: Digoxin * Chronic Pain: Morphine pump. Avoid narcotic escalation. * Seizure Disorder: Levetiracetam * IBS: Observe. Bowel regimen. * ONI: Home CPAP * COPD: Not acutely exacerbated. Duoneb PRN. Review home regimen,. * Constipation: Bowel regimen * Chronic Back Pain: Morphine pump. [place] PRN. Monitor narcotic use closely. Naloxone PRN over-sedation. * Bladder Spasms, Retention: Takes mirabegron at home but [id number] feels this doesn't work. Trial of solifenacin which she has taken previously. AUGUSTO MARTIN MD Jul 14, 2016 16:26
[2016-07-14] MEDS ORDERED: SODIUM CHLORIDE FLUSH 10 ML ONE (19:12)
[2016-07-14 19:44] VITALS: BP 103/44
[2016-07-14] MEDS: MEMANTINE 10 MG (NAMENDA) TABLET PO SCH (20:22)
[2016-07-15 00:32] VITALS: BP 110/52
[2016-07-15 03:59] VITALS: BP 96/44
[2016-07-15 06:14] LABS: BASOPHILS % (AUTO) 0 % (0-2); EOSINOPHILS # (AUTO) 0.1 10^3uL; EOSINOPHILS % (AUTO) 1 % (0-4); LYMPHOCYTES # (AUTO) 1.4 X10^3; MEAN CORPUSCULAR HEMOGLOBIN 31.2 PG (26.0-34.0); MEAN CORPUSCULAR HGB CONC 32.9 g/dL (31.0-37.0); MEAN CORPUSCULAR VOLUME 95 FL (80-100); MEAN PLATELET VOLUME 10.7 FL (6.0-9.5); MONOCYTES # (AUTO) 0.7 X10^3; MONOCYTES % (AUTO) 8 % (3-11); NEUTROPHILS # (AUTO) 6.1 X10^3; NEUTROPHILS % (AUTO) 74 % (51-67); PLATELET COUNT 187 10^3uL (150-450); WHITE BLOOD COUNT 8.18 10^3uL (4.0-11.0)
[2016-07-15] MEDS: MEROPENEM 1 GM in SODIUM CHLORIDE 100 ML IV SCH ×2 (06:23→18:25)
--- NOTE | 2016-07-15 06:50 | NUR ---
Patient rests in bed throughout night without needs. Utilizes call light appropriately. Up to bathroom with one assistance. Merrem running through IV without problem. No needs at this time.
[2016-07-15 06:55] LABS: ALBUMIN 2.8 g/dL (3.4-5.0); ANION GAP 8.8 MEQ/L (3-15)
[2016-07-15 07:46] VITALS: BP 109/49
[2016-07-15] MEDS: NICOTINE 21 MG (NICODERM) PATCH TD SCH (08:31)
[2016-07-15] MEDS: ENOXAPARIN 30 MG/0.3 ML (LOVENOX) SYR SC SCH (08:31)
[2016-07-15] MEDS: FOLIC ACID 1 MG TAB PO SCH (08:31)
[2016-07-15] MEDS: MEMANTINE 10 MG (NAMENDA) TABLET PO SCH ×2 (08:31→20:35)
[2016-07-15] MEDS: LEVETIRACETAM 250 MG PO SCH ×2 (08:31→20:35)
[2016-07-15] MEDS: CITALOPRAM 40 MG (CELEXA) TABLET PO SCH (08:31)
[2016-07-15] MEDS: DIGOXIN 0.125 MG (LANOXIN) TAB PO SCH (08:31)
[2016-07-15] MEDS ORDERED: BISACODYL 10 MG SUPP (DULCOLAX) PR PRN (11:05)
[2016-07-15] MEDS ORDERED: NS FLUSH 10 ML PRN IV (11:10)
[2016-07-15] MEDS ORDERED: NS FLUSH 3 ML PRN IV (11:10)
[2016-07-15 11:44] VITALS: BP 110/50
--- NOTE | 2016-07-15 12:45 | NUR ---
Pt found lying in bed on RA, SPO2 86%, HR 90. Placed on 2 l/min NC. SPO2 recovered to 92% within two minutes. BS have expiratory rhonchi throughout, Pt was able to cough and clear BS. No PRN intervention indicated.
--- NOTE | 2016-07-15 15:22 | Progress Note (E) ---
Progress Note SUBJECTIVE Remains afebrile. On 2 L oxygen though. Other vitals stable. Getting agitated. Confused as to why she's here. Asking to go home. Asks for resumption of home pain medication which had been held deliberately because of altered mental status on admit. WBC remains normal with no bandemia. Chemistry stable. CRP dropped from 14.10 to 7.00. Urine shows no growth. Blood culture also negative. Remains on meropenem because of prior urine culture. Complained of constipation and asked for suppository. Bisacodyl ordered. Changed polyethylene glycol to scheduled which she does at home. CXR noted, showing pulmonary nodules. Seems to be changed from prior chest CT April 2015. CT chest ordered to further characterize. On exam, resting in bed, awake, interactive. Mental status overall improving. Updated on findings, plan of care. OBJECTIVE Vital Signs Date Time Temp Pulse Resp B/P Pulse Ox O2 Delivery O2 Flow Rate FiO2 07/15/16 11:44 97.6 71 20 110/50 92 Nasal cannula 07/14/16 19:44 2.00 I & O 07/14/16 07/15/16 Cumulative From/Thru 19:00 07:00 07/13/16 18:11 - 07/15/16 06:04 Intake Total 100 ml 387 ml 787 ml Output Total 600 ml 600 ml 1300 ml Balance -500 ml -213 ml -513 ml GEN: More alert and interactive. Still mildly confused but oriented to place, self, somewhat to situation. HEENT: EOMI, clear sclerae, dry oral mucosa. Edentulous but has dentures. CV: Regular with II/ systolic murmur at LSB. LUNGS: Diminished bases without R/R/W. ABD: Soft, no apparent tenderness, no distension. Active bowel sounds. EXTR: Trace BLE edema. INTEG: Age related changes. Mild pallor. Warm, dry. NEURO: Psychomotor slowing. No apparent focal motor neuro deficit. Lab-Past 14 Days, 35 Results 07/13/16 09:10: Urine Bacteria Rare, Urine Bilirubin Negative, Urine Blood Trace-lysedH, Urine Clarity Cloudy, Urine Collection Type Clean catch, Urine Color Dark yellow, Urine Glucose (UA) Negative, Urine Ketones TraceH, Urine Leukocyte Esterase 1+H , Urine Microscopic RBC 5-10H, Urine Mucus Rare, Urine Nitrite Negative, Urine Protein 1+H, Urine Specific [place] 1.015, Urine Squamous Epithelial Cells 5-10 , Urine Urobilinogen 0.2, Urine WBC 20-50H, Urine pH 5.5, Volume Urine Centrifuged 12 ml 07/14/16 05:20: Albumin 2.8#L, Ammonia 14.5, Anion Gap 11.9, Basophils # (Auto) 0.0, Basophils ( %) (Auto) 0, Blood Urea Nitrogen 25H, C-Reactive Protein 14.10H, Calcium Level 8.5L, Carbon Dioxide Level 28, Chloride Level 105, Creatinine 0.73, Eosinophils # (Auto) 0.1, Eosinophils (%) (Auto) 1, Estimat Glomerular Filtration Rate 92.6 , Estimated GFR (Non- 76.5, Glucose Level 93#, Hematocrit 34.20L , Hemoglobin 11.5L, Lymphocytes # (Auto) 1.0, Lymphocytes (%) (Auto) 11L, Mean Corpuscular Hemoglobin 31.3, Mean Corpuscular Hemoglobin Concent 33.6, Mean Corpuscular Volume 93, Mean Platelet Volume 11.0H, Monocytes # (Auto) 0.7, Monocytes (%) (Auto) 8, Neutrophils # (Auto) 7.2, Neutrophils (%) (Auto) 80H, Phosphorus Level 3.3, Platelet Count 160, Potassium Level 4.1, Red Blood Count 3.67L, Red Cell Distribution Width 12.9, Sodium Level 140, Thyroid Stimulating Hormone (TSH) 1.67#, White Blood Count 9.04 07/15/16 05:50: Albumin 2.8L, Anion Gap 8.8, Basophils # (Auto) 0.0, Basophils (%) (Auto) 0, Blood Urea Nitrogen 20H, C-Reactive Protein 7.00H, Calcium Level 8.9, Carbon Dioxide Level 33H, Chloride Level 105, Creatinine 0.70, Eosinophils # (Auto) 0.1 , Eosinophils (%) (Auto) 1, Estimat Glomerular Filtration Rate 97.2, Estimated GFR (Non- 80.3, Glucose Level 89, Hematocrit 34.60L, Hemoglobin 11.4L, Lymphocytes # (Auto) 1.4, Lymphocytes (%) (Auto) 17L, Mean Corpuscular Hemoglobin 31.2, Mean Corpuscular Hemoglobin Concent 32.9, Mean Corpuscular Volume 95, Mean Platelet Volume 10.7H, Monocytes # (Auto) 0.7, Monocytes (%) ( Auto) 8, Neutrophils # (Auto) 6.1, Neutrophils (%) (Auto) 74H, Phosphorus Level 2.8, Platelet Count 187, Potassium Level 4.6, Red Blood Count 3.65L, Red Cell Distribution Width 12.9, Sodium Level 142, White Blood Count 8.18 MICRO 07/13 Blood culture PENDING 07/13 Urine culture PENDING SPEC #: [id number] BREANA: 07/06/16 STATUS: COMP REQ #: [id number] RECD: 07/06/16 [facility] [address]: CYNTHIA ANTONIO MD Order Location: LAB SOURCE: URINE DESCRIPTION: CLEAN CATC Procedure Result Verified URINE CULTURE Final Verified 07/09/16-0701 AM Source: URINE / CLEAN CATCH Order Location: LABORATORY Site: [facility] Received : 07/06/16 16:33 Order#: [id number] Urine Culture FINAL 07/09/16 07:00 S Escherichia coli >100,000 cfu/ml This strain produces extended spectrum beta lactamase ( ESBL) E. coli Antibiotic SERENE INT Amikacin <=2 S Ampicillin >=32 R Ampicillin/sulbactam 16 I Cefazolin >=64 R Ceftriaxone >=64 R Ciprofloxacin >=4 R Gentamicin >=16 R Meropenem <=0.25 S Nitrofurantoin <=16 S Trimethoprim/Sulfa >=320 R S=SUSCEPTIBLE I=INTERMEDIATE R=RESISTANT S-DD= SUSCEPTIBLE, DOSE DEPENDENT IMAGING 07/13/16 CHEST PA/LAT (2 VIEW)* INDICATION: Dyspnea and hypoxia. Comparison made with prior examination from 06/25/15. FINDINGS: There's cardiomegaly. There is some venous congestion. There is bibasilar atelectasis and/or pneumonitis on the left. There is some more nodular appearing densities in the left midlung. There is no pneumothorax. The mediastinum is unremarkable. IMPRESSION: Bibasal atelectasis and/or pneumonitis right greater than left. Cardiomegaly and moderate central pulmonary venous congestion. Questionable nodular appearing densities in the left midlung. While these may be infiltrates possibility of underlying mass cannot be excluded. Further evaluation with contrast-enhanced CT chest is recommended. 07/13/16 LUMBOSACRAL SPINE 4 VIEWS OR > EXAM: LUMBOSACRAL SPINE 4 VIEWS OR > INDICATION: Fall. Back pain. COMPARISON: Lumbar spine CT without contrast 2012. Abdominal radiographs 06/20/2015. FINDINGS: There are five lumbar type vertebral bodies. There is moderate to advanced left apex lumbar curvature centered at L3-L4. Stable moderate rightward listhesis of L2 on L3. Vertebral body heights appear maintained. There are laminectomies at L3-L5. Moderate to advanced degenerative endplate changes most marked at L3-L5. Intrathecal pain pump. The catheter tip remains at the level of L1, similar to the prior exam. The course of the catheter appears intact. Coarse arterial calcifications. Mild compression deformities of the T9 and T10 vertebral bodies appear to be new since the 06/20/2015 abdominal radiographs. Comparison is limited by differences in technique and positioning. IMPRESSION: 1. No acute radiographic findings in the lumbar spine. There are moderate to advanced spondylotic changes. 2. Mild compression deformities of the T9 and T10 vertebral bodies appear to be new since the 06/20/2015 abdominal radiographs. This could be confirmed with thoracic spine MRI without contrast. 07/13/16 CT HEAD WO PROCEDURE: CT head without contrast. TECHNIQUE: Multiple contiguous axial images were obtained through the brain without the use of intravenous contrast. INDICATION: Multiple falls. COMPARISON: 06/28/2015. FINDINGS: There is generalized cortical atrophy. Ventricles are not dilated. There is no intracranial hemorrhage. No extra-axial fluid collection. Basal cisterns are clear. CP angles appear normal. Pituitary is not enlarged. The mastoid air cells are clear. Paranasal sinuses are clear where visualized. Bone windows show no calvarial fractures. IMPRESSION: Generalized cortical atrophy with no acute intracranial abnormalities. 07/13/16 PELVIS INDICATION: Fall. Complaining of left hip pain. FINDINGS: Bony pelvis is intact. SI joints are symmetrical with moderate sclerosis. Pubic symphysis is in good alignment. Femoral heads are in normal articulation bilaterally. No fractures of the hips demonstrated. Moderate degenerative changes noted. IMPRESSION: Diffuse degenerative changes with no evidence of acute fracture. ASSESSMENT Sally Uribe is a 80 year old female admitted from clinic 07/13 with encephalopathy in the setting of recent diagnosis of UTI due to ESBL E coli. She had been treated for 4 days with nitrofurantoin but had not been improving clinically. Though she did not meet sepsis criteria there was concern for this on admit. She has numerous chronic problems. PLAN * Possible Sepsis: Did not meet SIRS/sepsis criteria. Monitored labs and vitals closely. Blood culture negative. Repeat urine culture negative to date. Empiric meropenem. * Complicated UTI due to ESBL E coli: Treated outpatient with nitrofurantoin but not improving. Culture as noted. New urine culture negative to date. CRP elevated but improved. Meropenem x 3 total days. * Encephalopathy, Delirium: Attributed to UTI, possible sepsis. TSH normal. Ammonia within normal limits. Monitored labs. Maintain day/night orientation. * Pulmonary Nodules: Noted on chest x-ray. Changed from CT chest 04/2015. New CT with contrast this admission. * Dehydration: Clinical diagnosis. NS maintenance x 1 L. * F/E/N: Mechanical soft, nectar thick liquids. Peripheral IV. I&O, daily weight. * Prophylaxis: Enoxaparin * Code Status: DNR. * Disposition: Inpatient. Was observation initially but admitted as of 07/14 due to complicated UTI, delirium, and pulmonary nodules. CHRONIC ISSUES * Dysphagia: Mechanical soft, nectar thick liquids. * Tobacco abuse: Nicotine * Vitamin D Deficiency: History of taking ergocalciferol. Review history form PCP's records. * Muscle Spasms: Hold baclofen * Anxiety: Citalopram * Depression: Citalopram * Atrial fibrillation: Digoxin * Chronic Pain: Morphine pump. Avoid narcotic escalation. * Seizure Disorder: Levetiracetam * IBS: Observe. Bowel regimen. * ONI: Home CPAP * COPD: Not acutely exacerbated. Duoneb PRN. Review home regimen,. * Constipation: Bowel regimen * Chronic Back Pain: Morphine pump. [place] PRN. Monitor narcotic use closely. Naloxone PRN over-sedation. * Bladder Spasms, Retention: Takes mirabegron at home but [id number] feels this doesn't work. Trial of solifenacin which she has taken previously. AUGUSTO MARTIN MD Jul 15, 2016 14:51
[2016-07-15] MEDS: HYDROcodone/APAP 10 MG/325 MG (NORCO) TAB PO PRN ×2 (15:28→20:36)
[2016-07-15 15:55] VITALS: BP 116/49
--- NOTE | 2016-07-15 16:54 | Diagnostic Imaging Report ---
PROCEDURE: CT chest with contrast only. TECHNIQUE: Multiple contiguous axial images were obtained through the chest after administration of intravenous contrast. INDICATION: Followup of chest x-ray questioning a pulmonary nodule in the left lung. FINDINGS: There is a solid mass present in the left upper lobe correlating with density on chest x-ray. This measures approximately 2 cm. This does show irregular margins. There is a second mass in the right lower lobe in the costophrenic angle measuring 11 mm. There is some atelectasis in the right middle lobe and lingula. Mild bronchiectasis as well. There is good opacification of the aorta and pulmonary arteries. No evidence of aortic aneurysm. There is a pretracheal lymph node present, measuring 2 x 1 cm. No evidence of hilar adenopathy. No pleural effusions or pericardial effusions. IMPRESSION: 1. Solid mass in the left upper lobe, measuring approximately 2 cm, which is highly suspicious for malignancy. 2. An 11 mm nodule is in the right lower lobe, indeterminate in etiology. 3. Atelectasis and bronchiectasis noted within the right middle lobe and lingula. Dictated by: Dictated on workstation # [id number]
--- NOTE | 2016-07-15 18:41 | NUR ---
Patient sitting up in bed watching TV. PRN [place] provided c/o "neck ache" this afternoon. Alert and oriented to self and situation but is forgetful. Ambulates with standby assist into bathroom with steady gate. PRN Dulcolax administered for c/o constipation this AM. Medium hard results noted. IV antibiotic infusing without difficulty. Will continue to monitor.
--- NOTE | 2016-07-15 19:24 | NUR ---
Pt resting in bed, watching TV, alert & oriented x4, speech clear. Denies dyspnea, on room air, lungs clear, diminished. Abdomen soft, non-tender. States discomfort at 7/10 currently. Discussed plan of care for next 4hrs, requests 2 pain pills before bed. Call light in reach. will round frequently for cares.
[2016-07-15 20:12] VITALS: BP 105/65
[2016-07-15] MEDS: DOCUSATE SODIUM 100 MG (COLACE) CAP PO PRN (20:35)
[2016-07-16] VITALS (7 sets, daily range): BP systolic 120–148; BP diastolic 54–72
[2016-07-16] MEDS: MEROPENEM 1 GM in SODIUM CHLORIDE 100 ML IV SCH (06:22)
--- NOTE | 2016-07-16 06:29 | NUR ---
Pt rests in short intervals throughout the night. up frequently to use the bathroom. SL intact. Resp even and non labored on 2L oxygen per home NOC regimen.
--- NOTE | 2016-07-16 08:00 | NUR ---
Pt resting in bed at this time. Up to RR frequently with diarrhea. Removed overnight O2 cannula. Pt denies pain, states her neck is stiff but denies need for intervention. Skin warm, dry, intact. Resprs nonlabored, even on RA. Call light within reach. Bed and tabs alarm on for safety.
[2016-07-16] MEDS: CITALOPRAM 40 MG (CELEXA) TABLET PO SCH (09:26)
[2016-07-16] MEDS: FOLIC ACID 1 MG TAB PO SCH (09:26)
[2016-07-16] MEDS: DIGOXIN 0.125 MG (LANOXIN) TAB PO SCH (09:26)
[2016-07-16] MEDS: MEMANTINE 10 MG (NAMENDA) TABLET PO SCH ×2 (09:26→20:05)
[2016-07-16] MEDS: POLYETHYLENE GLYCOL 17 GM (MIRALAX) PACKET PO SCH (09:26)
[2016-07-16] MEDS: LEVETIRACETAM 250 MG PO SCH ×2 (09:26→20:05)
[2016-07-16] MEDS: NICOTINE 21 MG (NICODERM) PATCH TD SCH (09:29)
[2016-07-16] MEDS: NS FLUSH 3 ML DAILY IV SCH (09:30)
[2016-07-16] MEDS: ENOXAPARIN 30 MG/0.3 ML (LOVENOX) SYR SC SCH (09:30)
[2016-07-16] MEDS: DOCUSATE SODIUM 100 MG (COLACE) CAP PO PRN (09:35)
--- NOTE | 2016-07-16 10:05 | NUR ---
NUTRITION ASSESSMENT Level 1 Patient: Sally Uribe Age/Sex: 80/F Date Screened: 07-16-16 Weight: 135.0#/61.4 kg Height: 63 inches Primary Diagnosis: UTI, newly dx lung cancer Diet Order: mechanical soft, nectar-thick liquids Relevant labs: N/A Food allergies: N Nutrition Assessment Criteria Age over 80: 4 points Body Mass Index (BMI) under 19: N Admission Screening Indicates Risk? 6 points Moderate/High Risk Diagnosis: 3 points TPN or PPN: N NPO or clear liquid diet: N Serum Glucose <70 or >180: N/A Hgb A1c >6.7: N/A Total: 13 points Risk Screen: __ Patient at low nutritional risk based on available data; reevaluate in 5-7 days __ Patient at moderate nutritional risk based on available data; reevaluate in 3-5 days _X_ Patient at high nutritional risk; complete Nutrition Assessment within 48 hours of admission.
--- NOTE | 2016-07-16 10:20 | Progress Note (E) ---
Progress Note S: Denies any new issues, neck pain still comes and goes, ate breakfast, breathing ok. no vomiting Daughter in law Danisha here in room O: I & O Past 24 hrs 07/16/16 07:00 Intake Total 1193 ml Balance 1193 ml Intake Oral 1193 ml # Bowel Movements 5 Vital Signs Date Time Temp Pulse Resp B/P Pulse Ox O2 Delivery O2 Flow Rate FiO2 07/16/16 08:40 96.4 62 18 122/57 94 Nasal cannula 07/16/16 04:00 2L.00 GEN: alert and interactive. Still mildly confused but oriented to place, self, somewhat to situation. HEENT: EOMI, clear sclerae, dry oral mucosa. Edentulous but has dentures. CV: Regular with II/ systolic murmur at LSB. LUNGS: Diminished bases without R/R/W. ABD: Soft, no apparent tenderness, no distension. Active bowel sounds. EXTR: Trace BLE edema. INTEG: Age related changes. Mild pallor. Warm, dry. NEURO: Psychomotor slowing. No apparent focal motor neuro deficit. Lab-Past 14 Days, 35 Results 07/13/16 09:10: Urine Bacteria Rare, Urine Bilirubin Negative, Urine Blood Trace-lysedH, Urine Clarity Cloudy, Urine Collection Type Clean catch, Urine Color Dark yellow, Urine Glucose (UA) Negative, Urine Ketones TraceH, Urine Leukocyte Esterase 1+H , Urine Microscopic RBC 5-10H, Urine Mucus Rare, Urine Nitrite Negative, Urine Protein 1+H, Urine Specific [place] 1.015, Urine Squamous Epithelial Cells 5-10 , Urine Urobilinogen 0.2, Urine WBC 20-50H, Urine pH 5.5, Volume Urine Centrifuged 12 ml 07/14/16 05:20: Albumin 2.8#L, Ammonia 14.5, Anion Gap 11.9, Basophils # (Auto) 0.0, Basophils ( %) (Auto) 0, Blood Urea Nitrogen 25H, C-Reactive Protein 14.10H, Calcium Level 8.5L, Carbon Dioxide Level 28, Chloride Level 105, Creatinine 0.73, Eosinophils # (Auto) 0.1, Eosinophils (%) (Auto) 1, Estimat Glomerular Filtration Rate 92.6 , Estimated GFR (Non- 76.5, Glucose Level 93#, Hematocrit 34.20L , Hemoglobin 11.5L, Lymphocytes # (Auto) 1.0, Lymphocytes (%) (Auto) 11L, Mean Corpuscular Hemoglobin 31.3, Mean Corpuscular Hemoglobin Concent 33.6, Mean Corpuscular Volume 93, Mean Platelet Volume 11.0H, Monocytes # (Auto) 0.7, Monocytes (%) (Auto) 8, Neutrophils # (Auto) 7.2, Neutrophils (%) (Auto) 80H, Phosphorus Level 3.3, Platelet Count 160, Potassium Level 4.1, Red Blood Count 3.67L, Red Cell Distribution Width 12.9, Sodium Level 140, Thyroid Stimulating Hormone (TSH) 1.67#, White Blood Count 9.04 07/15/16 05:50: Albumin 2.8L, Anion Gap 8.8, Basophils # (Auto) 0.0, Basophils (%) (Auto) 0, Blood Urea Nitrogen 20H, C-Reactive Protein 7.00H, Calcium Level 8.9, Carbon Dioxide Level 33H, Chloride Level 105, Creatinine 0.70, Eosinophils # (Auto) 0.1 , Eosinophils (%) (Auto) 1, Estimat Glomerular Filtration Rate 97.2, Estimated GFR (Non- 80.3, Glucose Level 89, Hematocrit 34.60L, Hemoglobin 11.4L, Lymphocytes # (Auto) 1.4, Lymphocytes (%) (Auto) 17L, Mean Corpuscular Hemoglobin 31.2, Mean Corpuscular Hemoglobin Concent 32.9, Mean Corpuscular Volume 95, Mean Platelet Volume 10.7H, Monocytes # (Auto) 0.7, Monocytes (%) ( Auto) 8, Neutrophils # (Auto) 6.1, Neutrophils (%) (Auto) 74H, Phosphorus Level 2.8, Platelet Count 187, Potassium Level 4.6, Red Blood Count 3.65L, Red Cell Distribution Width 12.9, Sodium Level 142, White Blood Count 8.18 MICRO 07/13 Blood culture PENDING 07/13 Urine culture PENDING SPEC #: [id number] BREANA: 07/06/16 STATUS: COMP REQ #: [id number] RECD: 07/06/16-1035 [facility] DR: CYNTHIA ANTONIO MD Order Location: LAB SOURCE: URINE DESCRIPTION: CLEAN CATC Procedure Result Verified URINE CULTURE Final Verified 07/09/16-0701 AM Source: URINE / CLEAN CATCH Order Location: LABORATORY Site: [facility] Received : 07/06/16 16:33 Order#: [id number] Urine Culture FINAL 07/09/16 07:00 S Escherichia coli >100,000 cfu/ml This strain produces extended spectrum beta lactamase ( ESBL) E. coli Antibiotic SERENE INT Amikacin <=2 S Ampicillin >=32 R Ampicillin/sulbactam 16 I Cefazolin >=64 R Ceftriaxone >=64 R Ciprofloxacin >=4 R Gentamicin >=16 R Meropenem <=0.25 S Nitrofurantoin <=16 S Trimethoprim/Sulfa >=320 R S=SUSCEPTIBLE I=INTERMEDIATE R=RESISTANT S-DD= SUSCEPTIBLE, DOSE DEPENDENT IMAGING 07/13/16 CHEST PA/LAT (2 VIEW)* INDICATION: Dyspnea and hypoxia. Comparison made with prior examination from 06/25/15. FINDINGS: There's cardiomegaly. There is some venous congestion. There is bibasilar atelectasis and/or pneumonitis on the left. There is some more nodular appearing densities in the left midlung. There is no pneumothorax. The mediastinum is unremarkable. IMPRESSION: Bibasal atelectasis and/or pneumonitis right greater than left. Cardiomegaly and moderate central pulmonary venous congestion. Questionable nodular appearing densities in the left midlung. While these may be infiltrates possibility of underlying mass cannot be excluded. Further evaluation with contrast-enhanced CT chest is recommended. 07/13/16 LUMBOSACRAL SPINE 4 VIEWS OR > EXAM: LUMBOSACRAL SPINE 4 VIEWS OR > INDICATION: Fall. Back pain. COMPARISON: Lumbar spine CT without contrast 2012. Abdominal radiographs 06/20/2015. FINDINGS: There are five lumbar type vertebral bodies. There is moderate to advanced left apex lumbar curvature centered at L3-L4. Stable moderate rightward listhesis of L2 on L3. Vertebral body heights appear maintained. There are laminectomies at L3-L5. Moderate to advanced degenerative endplate changes most marked at L3-L5. Intrathecal pain pump. The catheter tip remains at the level of L1, similar to the prior exam. The course of the catheter appears intact. Coarse arterial calcifications. Mild compression deformities of the T9 and T10 vertebral bodies appear to be new since the 06/20/2015 abdominal radiographs. Comparison is limited by differences in technique and positioning. IMPRESSION: 1. No acute radiographic findings in the lumbar spine. There are moderate to advanced spondylotic changes. 2. Mild compression deformities of the T9 and T10 vertebral bodies appear to be new since the 06/20/2015 abdominal radiographs. This could be confirmed with thoracic spine MRI without contrast. 07/13/16 CT HEAD WO PROCEDURE: CT head without contrast. TECHNIQUE: Multiple contiguous axial images were obtained through the brain without the use of intravenous contrast. INDICATION: Multiple falls. COMPARISON: 06/28/2015. FINDINGS: There is generalized cortical atrophy. Ventricles are not dilated. There is no intracranial hemorrhage. No extra-axial fluid collection. Basal cisterns are clear. CP angles appear normal. Pituitary is not enlarged. The mastoid air cells are clear. Paranasal sinuses are clear where visualized. Bone windows show no calvarial fractures. IMPRESSION: Generalized cortical atrophy with no acute intracranial abnormalities. 07/13/16 PELVIS INDICATION: Fall. Complaining of left hip pain. FINDINGS: Bony pelvis is intact. SI joints are symmetrical with moderate sclerosis. Pubic symphysis is in good alignment. Femoral heads are in normal articulation bilaterally. No fractures of the hips demonstrated. Moderate degenerative changes noted. IMPRESSION: Diffuse degenerative changes with no evidence of acute fracture. CT CHEST: 07-15-16 FINDINGS: There is a solid mass present in the left upper lobe correlating with density on chest x-ray. This measures approximately 2 cm. This does show irregular margins. There is a second mass in the right lower lobe in the costophrenic angle measuring 11 mm. There is some atelectasis in the right middle lobe and lingula. Mild bronchiectasis as well. There is good opacification of the aorta and pulmonary arteries. No evidence of aortic aneurysm. There is a pretracheal lymph node present, measuring 2 x 1 cm. No evidence of hilar adenopathy. No pleural effusions or pericardial effusions. IMPRESSION: 1. Solid mass in the left upper lobe, measuring approximately 2 cm, which is highly suspicious for malignancy. 2. An 11 mm nodule is in the right lower lobe, indeterminate in etiology. 3. Atelectasis and bronchiectasis noted within the right middle lobe and lingula. ASSESSMENT Sally Uribe is a 80 year old female admitted from clinic 07/13 with encephalopathy in the setting of recent diagnosis of UTI due to ESBL E coli. She had been treated for 4 days with nitrofurantoin but had not been improving clinically. Though she did not meet sepsis criteria there was concern for this on admit. She has numerous chronic problems. PLAN * Possible Sepsis: Did not meet SIRS/sepsis criteria. Monitored labs and vitals closely. Blood culture negative. Repeat urine culture negative to date. Empiric meropenem x 3 doses completed. * Complicated UTI due to ESBL E coli: Treated outpatient with nitrofurantoin but not improving. Culture as noted. New urine culture negative to date. CRP elevated but improved. Meropenem x 3 total days. * Encephalopathy, Delirium: Attributed to UTI, possible sepsis. TSH normal. Ammonia within normal limits. Monitored labs. Maintain day/night orientation. * Left upper lung mass/ pulmonary nodules: Noted on chest x-ray. Changed from CT chest 04/2015. New CT chest done 07-15-16 reveals solid mass Left upper lobe- concerning for malignancy * Dehydration: Clinical diagnosis. NS maintenance x 1 L. * F/E/N: Mechanical soft, nectar thick liquids. Peripheral IV. I&O, daily weight. * Prophylaxis: Enoxaparin * Code Status: DNR. * Disposition: Inpatient. Was observation initially but admitted as of 07/14 due to complicated UTI, delirium, and pulmonary nodules. Discussing the need for lung biopsy and timing of that with daughter in law. CHRONIC ISSUES * Dysphagia: Mechanical soft, nectar thick liquids. * Tobacco abuse: Nicotine * Vitamin D Deficiency: History of taking ergocalciferol. Review history form PCP's records. * Muscle Spasms: Hold baclofen * Anxiety: Citalopram * Depression: Citalopram * Atrial fibrillation: Digoxin * Chronic Pain: Morphine pump. Avoid narcotic escalation. * Seizure Disorder: Levetiracetam * IBS: Observe. Bowel regimen. * ONI: Home CPAP * COPD: Not acutely exacerbated. Duoneb PRN. Review home regimen,. * Constipation: Bowel regimen * Chronic Back Pain: Morphine pump. [place] PRN. Monitor narcotic use closely. Naloxone PRN over-sedation. * Bladder Spasms, Retention: Takes mirabegron at home but [id number] feels this doesn't work. Trial of solifenacin which she has taken previously. Pt seen and examined with ICHTHYOLOGY TEACHER, agree with above. Discussed lung mass with pt and daughter and the need for bx. Pt is willing to do the bx, but isn't sure what she'll do with the results. She is aware that cancer is a possibility. Will set up the bx, either while she is inpt or as an outpt. She is otherwise doing well and remains on abx for UTI. Julisa Canales APRN July 16, 2016 10:20 Lino Thomason MD July 16, 2016 20:35
--- NOTE | 2016-07-16 11:32 | NUR ---
Pt sleeping in bed, daughter in law at bedside. Sats 86-88% on RA, 2L NC placed at this time. Recovered to 92% within one minute. Will continue to monitor.
--- NOTE | 2016-07-16 13:20 | NUR ---
NUTRITION ASSESSMENT Level II Patient: Sally Uribe Age/Sex: 80/F Date Assessed: 07-16-16 ASSESSMENT Pertinent History: Patient admitted with UTI and screened at high nutritional risk secondary to decreased appetite and increased falls/confusion in elderly patient with suspected lung cancer. PMHx includes chronic pain, scoliosis, arthritis, spinal stenosis, IBS, COPD, anxiety/depression, chronic back pain, a fib and aspiration. She is normally on mechanical soft diet with NT liquids. She is edentulous but has dentures. Weight has been stable; the most recent weight in EMR was 127# in June 2015. Patient lives alone but has family nearby who keeps an eye on her. Meds/Nutrition: Colace, Miralax, Folic Acid Weight: 135.0#/61.4 kg Height: 63 inches Body Mass Index (BMI): 24.0 [place] Body Weight : 115#/52.2 kg % IBW: 117% GASTROINTESTINAL Appetite: poor, eating bites-25% Diet Order: mechanical soft, nectar-thick liquids Unintentional loss of >10 lbs. in 3 months: N Difficult to chew/swallow: Yes Diabetes: N Relevant Labs: N/A Calculations for Nutritional Assessment Estimated calorie needs: 25-28 kcals/kg = 1,525-1,700 kcals Estimated protein needs: 1.0-1.3 g/kg = 61-79 g./day DIAGNOSIS 1. 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 aspiration requiring mechanical soft diet with thickened liquids. NUTRITIONAL INTERVENTION Goal: Patient will receive adequate nutrition to meet her needs. Plan: Will provide mechanical soft diet with NT liquids as ordered, and monitor intake for adequacy. Will supplement with Ensure or homemade protein shake to see if her kcals/protein intake will improve with supplements in liquid form that are naturally nectar-thick. Noted dx. of likely lung cancer as of yesterday; will monitor progress with physician and attempt to maximize p.o. nutrition. MONITORING & EVALUATION _X_ Monitor patients menu selections _X_ Monitor patients food intake per nursing notes __ Monitor NPO/clear liquid days __ Monitor lab values __ Monitor I&O __ Other
--- NOTE | 2016-07-16 14:23 | NUR ---
Pt found sleeping in bed on 2 l/min NC, SPO2 100%, HR 67 with clear and diminished BS at this time. O2 titrated to RA.
--- NOTE | 2016-07-16 17:14 | Physical Therapy Evaluation(E) ---
Initial Evaluation Service Date/Time 07/16/16, 17:13 Primary Diagnosis: (1) Acute kidney injury ICD Code: N17.9 (2) Chronic back pain (3) Altered mental status ICD Code: R41.82 (4) COPD (chronic obstructive pulmonary disease) ICD Code: J44.9 (5) Mass of lung ICD Code: R91.8 (6) Chronic low back pain ICD Code: 724.2 (7) Malaise (8) Shortness of breath ICD Code: R06.02 Treatment Diagnosis: Resuscitation Status: Do Not Resuscitate Precaution/Isolation: Standard Precautions Fall Level: High Risk 51 or greater Coding Time In: 1322 Time Out: 1343 Total Minutes: 21 Charges: 01772 Eval< 20 min PRASHANT RIDDLE PT July 16, 2016 17:14
--- NOTE | 2016-07-16 18:42 | NUR ---
Up with SBA to RR. Pt has denied needs this shift. Skin warm, dry, intact. Resprs nonlabored, even on RA. Call light within reach. Bed and tabs alarm on for safety.
[2016-07-16] MEDS: DOCUSATE SODIUM 100 MG (COLACE) CAP PO SCH (20:05)
[2016-07-17 03:46] VITALS: BP 125/61
--- NOTE | 2016-07-17 04:55 | NUR ---
Pt up to bathroom. C/o "itching" on her abdomen. Noted that pt has red rash around lower abdomen where depends are sitting. Will change pt to her personal underwear and see if that helps.
[2016-07-17 07:31] VITALS: BP 118/59
[2016-07-17] MEDS: DIGOXIN 0.125 MG (LANOXIN) TAB PO SCH (08:36)
[2016-07-17] MEDS: LEVETIRACETAM 250 MG PO SCH (08:36)
[2016-07-17] MEDS: FOLIC ACID 1 MG TAB PO SCH (08:36)
[2016-07-17] MEDS: MEMANTINE 10 MG (NAMENDA) TABLET PO SCH (08:36)
[2016-07-17] MEDS: DOCUSATE SODIUM 100 MG (COLACE) CAP PO SCH (08:36)
[2016-07-17] MEDS: CITALOPRAM 40 MG (CELEXA) TABLET PO SCH (08:36)
[2016-07-17] MEDS: POLYETHYLENE GLYCOL 17 GM (MIRALAX) PACKET PO SCH (08:36)
[2016-07-17] MEDS: ENOXAPARIN 30 MG/0.3 ML (LOVENOX) SYR SC SCH (08:37)
[2016-07-17] MEDS: NICOTINE 21 MG (NICODERM) PATCH TD SCH (08:37)
[2016-07-17] MEDS: NS FLUSH 3 ML DAILY IV SCH (08:37)
--- NOTE | 2016-07-17 09:50 | NUR ---
Sally is alert and oriented this AM. Skin is clean and dry and respirations are even and unlabored. She is able to make needs known and rests in bed under covers. She complies with directions and cooperates with all cares. Discharge to rehab planned for this afternoon.
--- NOTE | 2016-07-17 09:54 | Discharge Instructions (E) ---
Discharge Instructions Instructions You are going to [facility] for skilled rehab Lung biospy Saturday07-20-16 at [facility] 11:45 Continue same medications You have completed antibiotics for your UTI Contact your doctor for questions or concerns Activity Instructions as tolerates Doctor's Appointment Appointment Saturday07-20-16 for lung biopsy arrive to [facility] at 11:45 and procedure is at 1pm Appt with Rubén Kent 1 week Discharge Diet: Mechanical soft Julisa Peace APRN July 17, 2016 09:54
--- NOTE | 2016-07-17 09:57 | Discharge Summary (E FT) ---
Discharge Summary (E FT) Admit Date Jul 13, 2016 at 17:31 Discharge Date July 17, 2016 Admitting Provider Judah Ruiz MD Primary Care Provider Attending Provider Judah Ruiz MD Consulting Provider Hospital Course Summary CC: UTI, falls at home. ANNAMARIA Uribe is a 80 year old female admitted from clinic 07/13 where she presented with worse mental status, falls at home, poor appetite, increased confusion. She has been treated outpatient for UTI that grew E. coli. She was switched from Bactrim to nitrofurantoin based on sensitivity. She had follow-up in clinic today. WBC 12.26 with no bandemia. Chemistry stable. Digoxin 1.10. New urine was not checked. Because of falls at home, CT head, pelvis, L-spine were checked and all were negative for acute changes. However, because of continual decline, PCP called asking for admission. On arrival to unit, vitals stable but she is somnolent. She does not provide any history. [id number] provides history. Had UTI symptoms about 1 week ago but on Saturday, changed because of culture results. Today she was taken to [place] [facility] for refill of morphine. On the drive back from [place], [id number] noticed marked increase in confusion. [id number] got her back in clinic with PCP late this afternoon and she was looking more and more ill, though vitals were stable. Labs as noted below. For this concerns, she was admitted. Has been living in an apartment independently with her dog. But she has fallen multiple times. Mental status has declined significantly over the last several days but even before that she had a general decline in memory and was falling more at home. She has done well during this admission, Completed Meropenum for UTI- culture negative. Vital Signs Date Time Temp Pulse Resp B/P Pulse Ox O2 Delivery O2 Flow Rate FiO2 07/17/16 07:31 96.3 68 18 118/59 94 Nasal cannula 07/17/16 03:46 2L.00 GEN: alert and interactive. Still mildly confused but oriented to place, self, somewhat to situation. HEENT: EOMI, clear sclerae, dry oral mucosa. Edentulous but has dentures. CV: Regular with II/ systolic murmur at LSB. LUNGS: Diminished bases without R/R/W. ABD: Soft, no apparent tenderness, no distension. Active bowel sounds. EXTR: Trace BLE edema. INTEG: Age related changes. Mild pallor. Warm, dry. NEURO: Psychomotor slowing. No apparent focal motor neuro deficit. Lab-Past 14 Days, 35 Results 07/13/16 09:10: Urine Bacteria Rare, Urine Bilirubin Negative, Urine Blood Trace-lysedH, Urine Clarity Cloudy, Urine Collection Type Clean catch, Urine Color Dark yellow, Urine Glucose (UA) Negative, Urine Ketones TraceH, Urine Leukocyte Esterase 1+H , Urine Microscopic RBC 5-10H, Urine Mucus Rare, Urine Nitrite Negative, Urine Protein 1+H, Urine Specific [place] 1.015, Urine Squamous Epithelial Cells 5-10 , Urine Urobilinogen 0.2, Urine WBC 20-50H, Urine pH 5.5, Volume Urine Centrifuged 12 ml 07/14/16 05:20: Albumin 2.8#L, Ammonia 14.5, Anion Gap 11.9, Basophils # (Auto) 0.0, Basophils ( %) (Auto) 0, Blood Urea Nitrogen 25H, C-Reactive Protein 14.10H, Calcium Level 8.5L, Carbon Dioxide Level 28, Chloride Level 105, Creatinine 0.73, Eosinophils # (Auto) 0.1, Eosinophils (%) (Auto) 1, Estimat Glomerular Filtration Rate 92.6 , Estimated GFR (Non- 76.5, Glucose Level 93#, Hematocrit 34.20L , Hemoglobin 11.5L, Lymphocytes # (Auto) 1.0, Lymphocytes (%) (Auto) 11L, Mean Corpuscular Hemoglobin 31.3, Mean Corpuscular Hemoglobin Concent 33.6, Mean Corpuscular Volume 93, Mean Platelet Volume 11.0H, Monocytes # (Auto) 0.7, Monocytes (%) (Auto) 8, Neutrophils # (Auto) 7.2, Neutrophils (%) (Auto) 80H, Phosphorus Level 3.3, Platelet Count 160, Potassium Level 4.1, Red Blood Count 3.67L, Red Cell Distribution Width 12.9, Sodium Level 140, Thyroid Stimulating Hormone (TSH) 1.67#, White Blood Count 9.04 07/15/16 05:50: Albumin 2.8L, Anion Gap 8.8, Basophils # (Auto) 0.0, Basophils (%) (Auto) 0, Blood Urea Nitrogen 20H, C-Reactive Protein 7.00H, Calcium Level 8.9, Carbon Dioxide Level 33H, Chloride Level 105, Creatinine 0.70, Eosinophils # (Auto) 0.1 , Eosinophils (%) (Auto) 1, Estimat Glomerular Filtration Rate 97.2, Estimated GFR (Non- 80.3, Glucose Level 89, Hematocrit 34.60L, Hemoglobin 11.4L, Lymphocytes # (Auto) 1.4, Lymphocytes (%) (Auto) 17L, Mean Corpuscular Hemoglobin 31.2, Mean Corpuscular Hemoglobin Concent 32.9, Mean Corpuscular Volume 95, Mean Platelet Volume 10.7H, Monocytes # (Auto) 0.7, Monocytes (%) ( Auto) 8, Neutrophils # (Auto) 6.1, Neutrophils (%) (Auto) 74H, Phosphorus Level 2.8, Platelet Count 187, Potassium Level 4.6, Red Blood Count 3.65L, Red Cell Distribution Width 12.9, Sodium Level 142, White Blood Count 8.18 MICRO 07/13 Blood culture PENDING 07/13 Urine culture PENDING SPEC #: [id number] BREANA: 07/06/16 STATUS: COMP REQ #: [id number] RECD: 07/06/[address] [facility] [address]: CYNTHIA ANTONIO MD Order Location: LAB SOURCE: URINE DESCRIPTION: CLEAN CATC Procedure Result Verified URINE CULTURE Final Verified 07/09/16-0701 AM Source: URINE / CLEAN CATCH Order Location: LABORATORY Site: [facility] Received : 07/06/16 16:33 Order#: [id number] Urine Culture FINAL 07/09/16 07:00 S Escherichia coli >100,000 cfu/ml This strain produces extended spectrum beta lactamase ( ESBL) E. coli Antibiotic SERENE INT Amikacin <=2 S Ampicillin >=32 R Ampicillin/sulbactam 16 I Cefazolin >=64 R Ceftriaxone >=64 R Ciprofloxacin >=4 R Gentamicin >=16 R Meropenem <=0.25 S Nitrofurantoin <=16 S Trimethoprim/Sulfa >=320 R S=SUSCEPTIBLE I=INTERMEDIATE R=RESISTANT S-DD= SUSCEPTIBLE, DOSE DEPENDENT IMAGING 07/13/16 CHEST PA/LAT (2 VIEW)* INDICATION: Dyspnea and hypoxia. Comparison made with prior examination from 06/25/15. FINDINGS: There's cardiomegaly. There is some venous congestion. There is bibasilar atelectasis and/or pneumonitis on the left. There is some more nodular appearing densities in the left midlung. There is no pneumothorax. The mediastinum is unremarkable. IMPRESSION: Bibasal atelectasis and/or pneumonitis right greater than left. Cardiomegaly and moderate central pulmonary venous congestion. Questionable nodular appearing densities in the left midlung. While these may be infiltrates possibility of underlying mass cannot be excluded. Further evaluation with contrast-enhanced CT chest is recommended. 07/13/16 LUMBOSACRAL SPINE 4 VIEWS OR > EXAM: LUMBOSACRAL SPINE 4 VIEWS OR > INDICATION: Fall. Back pain. COMPARISON: Lumbar spine CT without contrast 2012. Abdominal radiographs 06/20/2015. FINDINGS: There are five lumbar type vertebral bodies. There is moderate to advanced left apex lumbar curvature centered at L3-L4. Stable moderate rightward listhesis of L2 on L3. Vertebral body heights appear maintained. There are laminectomies at L3-L5. Moderate to advanced degenerative endplate changes most marked at L3-L5. Intrathecal pain pump. The catheter tip remains at the level of L1, similar to the prior exam. The course of the catheter appears intact. Coarse arterial calcifications. Mild compression deformities of the T9 and T10 vertebral bodies appear to be new since the 06/20/2015 abdominal radiographs. Comparison is limited by differences in technique and positioning. IMPRESSION: 1. No acute radiographic findings in the lumbar spine. There are moderate to advanced spondylotic changes. 2. Mild compression deformities of the T9 and T10 vertebral bodies appear to be new since the 06/20/2015 abdominal radiographs. This could be confirmed with thoracic spine MRI without contrast. 07/13/16 CT HEAD WO PROCEDURE: CT head without contrast. TECHNIQUE: Multiple contiguous axial images were obtained through the brain without the use of intravenous contrast. INDICATION: Multiple falls. COMPARISON: 06/28/2015. FINDINGS: There is generalized cortical atrophy. Ventricles are not dilated. There is no intracranial hemorrhage. No extra-axial fluid collection. Basal cisterns are clear. CP angles appear normal. Pituitary is not enlarged. The mastoid air cells are clear. Paranasal sinuses are clear where visualized. Bone windows show no calvarial fractures. IMPRESSION: Generalized cortical atrophy with no acute intracranial abnormalities. 07/13/16 PELVIS INDICATION: Fall. Complaining of left hip pain. FINDINGS: Bony pelvis is intact. SI joints are symmetrical with moderate sclerosis. Pubic symphysis is in good alignment. Femoral heads are in normal articulation bilaterally. No fractures of the hips demonstrated. Moderate degenerative changes noted. IMPRESSION: Diffuse degenerative changes with no evidence of acute fracture. CT CHEST: 07-15-16 FINDINGS: There is a solid mass present in the left upper lobe correlating with density on chest x-ray. This measures approximately 2 cm. This does show irregular margins. There is a second mass in the right lower lobe in the costophrenic angle measuring 11 mm. There is some atelectasis in the right middle lobe and lingula. Mild bronchiectasis as well. There is good opacification of the aorta and pulmonary arteries. No evidence of aortic aneurysm. There is a pretracheal lymph node present, measuring 2 x 1 cm. No evidence of hilar adenopathy. No pleural effusions or pericardial effusions. IMPRESSION: 1. Solid mass in the left upper lobe, measuring approximately 2 cm, which is highly suspicious for malignancy. 2. An 11 mm nodule is in the right lower lobe, indeterminate in etiology. 3. Atelectasis and bronchiectasis noted within the right middle lobe and lingula. ASSESSMENT Sally Uribe is a 80 year old female admitted from clinic 07/13 with encephalopathy in the setting of recent diagnosis of UTI due to ESBL E coli. She had been treated for 4 days with nitrofurantoin but had not been improving clinically. Though she did not meet sepsis criteria there was concern for this on admit. She has numerous chronic problems. PLAN * Possible Sepsis: Did not meet SIRS/sepsis criteria. Monitored labs and vitals closely. Blood culture negative. Repeat urine culture negative to date. Empiric meropenem x 3 doses completed. * Complicated UTI due to ESBL E coli: Treated outpatient with nitrofurantoin but not improving. Culture as noted. New urine culture negative to date. CRP elevated but improved. Meropenem x 3 total days. * Encephalopathy, Delirium: Attributed to UTI, possible sepsis. TSH normal. Ammonia within normal limits. Monitored labs. Maintain day/night orientation. * Left upper lung mass/ pulmonary nodules: Noted on chest x-ray. Changed from CT chest 04/2015. New CT chest done 07-15-16 reveals solid mass Left upper lobe- concerning for malignancy - She is scheduled for a lung biospy in [place] Saturday07-20-16 at 11:45 needs to register then procedure at 1 pm. Papers faxed and pt will take disk of CXR and CT with her. Dr House is aware. * Dehydration: Clinical diagnosis. improved * F/E/N: Mechanical soft, nectar thick liquids. Peripheral IV. I&O, daily weight. * Code Status: DNR. * Disposition: Inpatient- WillDC today to go to [facility] for continued skilled therapy. Was observation initially but admitted inpt as of due to complicated UTI, delirium, and pulmonary nodules. Lung biopsy Saturday in [place], daughter in law aware. CHRONIC ISSUES * Dysphagia: Mechanical soft, nectar thick liquids. * Tobacco abuse: Nicotine * Vitamin D Deficiency: History of taking ergocalciferol. Review history form PCP's records. * Muscle Spasms: Hold baclofen * Anxiety: Citalopram * Depression: Citalopram * Atrial fibrillation: Digoxin * Chronic Pain: Morphine pump. Avoid narcotic escalation. * Seizure Disorder: Levetiracetam * IBS: Observe. Bowel regimen. * ONI: Home CPAP * COPD: Not acutely exacerbated. Duoneb PRN. Review home regimen,. * Constipation: Bowel regimen * Chronic Back Pain: Morphine pump. [place] PRN. Monitor narcotic use closely. * Bladder Spasms, Retention: Takes mirabegron at home Pt seen and examined with [employer], agree with above. Pt feeling better and ready for skilled care. D/C today with bx of lung mass later this week in [place]. UTI has cleared. Discharge Disposition [facility] for skilled Daughter in law to drive her Continued Medications: Baclofen (Baclofen) 10 Mg Tablet 10 MG PO BID Citalopram Hydrobromide (Celexa) 40 Mg Tablet 40 MG PO DAILY TAB Digoxin (Lanoxin) 0.125 Mg Tab 0.125 MG PO DAILY #30 Ref 0 TAB Docusate Sodium (Docusate Sodium) 100 Mg Capsule 100 MG PO BID PRN CONSTIPATION CAP Ergocalciferol (Vitamin D2) (Vitamin D2) 2,000 Unit Tablet 2000 UNIT PO DAILY Vitamin/Mineral Supplemnt Ref 0 TAB Folic Acid (Folic Acid) 1 Mg Tablet 1 MG PO DAILY TAB Hydrocodone Bit/Acetaminophen (Hydrocodon-Acetaminophen 10-325) 1 Each Tablet 1-2 TAB PO Q4H PRN PAIN Levetiracetam (Keppra) 250 Mg Tablet 250 MG PO BID TAB Magnesium Hydroxide (Milk of Magnesia 400mg/5ml) 400 Mg/5 Ml Oral.susp 30 ML PO DAILY BTL Memantine HCl (Namenda XR) 28 Mg Cap.spr.24 28 MG PO DAILY CAP Polyethylene Glycol 3350 (Miralax) 17 Gm Powd.pack 17 GM PO DAILY ([Morphine Pump]) 10.5 MG IV UD ([Oxygen]) 2 L NA DAILY Discontinued Medications: Nitrofurantoin/Nitrofuran Mac (Macrobid) 100 Mg Capsule 100 MG PO DAILY Infection Ref 0 CAP Follow up Instructions You are going to [facility] for skilled rehab Lung biospy Saturday07-20-16 at [facility] 11:45 Continue same medications You have completed antibiotics for your UTI Contact your doctor for questions or concerns Copies to: End of Report . Julisa Peace APRN July 17, 2016 09:57 Lino Thomason MD July 17, 2016 20:16
--- NOTE | 2016-07-17 10:32 | NUR ---
SpO2 94% on 2.5Lpm nasal cannula. BS clear. Pt states she doesn't need a treatment at this time.
[2016-07-17] MEDS ORDERED: diphenhydrAMINE 50 MG/ML INJ (BENADRYL) IV ONE (10:40)
--- NOTE | 2016-07-17 10:40 | Progress Note (E) ---
Progress Note prior to dc noted hive like rash on back -itchy- will give benadryl 12.5mg IV x 1. No other ocmplaints or issues. shes ready to go to the [facility] Julisa Peace APRN July 17, 2016 10:40
[2016-07-17 11:22] VITALS: BP 115/61
--- NOTE | 2016-07-17 12:50 | NUR ---
Discharge processed, IV removed and report called to [facility]. Sally is currently up in bed eating lunch.
--- NOTE | 2016-07-17 13:20 | NUR ---
the patient is escorted out of the unit by Violeta DRAPER at this time
== END 2016-07-17 13:20 | DRG 690 ==
LOC: MED/SURG 17:31 → OBSVTOIN 17:31 → UNDOADMOB 17:31
PROVIDERS: ADMIT Internal Medicine; ATTEND Internal Medicine
DX: N39.0 Urinary tract infection, site not specified (principal); F05 Delirium due to known physiological condition; Z66 Do not resuscitate; J44.9 Chronic obstructive pulmonary disease, unspecified; G89.29 Other chronic pain; E86.0 Dehydration; G40.909 Epilepsy, unspecified, not intractable, without status epilepticus; R33.9 Retention of urine, unspecified; R91.8 Other nonspecific abnormal finding of lung field; B96.20 Unspecified Escherichia coli [E. coli] as the cause of diseases classified elsewhere; Z16.12 Extended spectrum beta lactamase (ESBL) resistance; Z91.81 History of falling
CPT/HCPCS: 36415; 71020; 71260; 80069; 81003; 81015; 82140; 84443; 85025; 86140; 87040; 87088; 94760

== ENCOUNTER → 2016-07-13 | Outpatient (REF) | payer MEDICARE ==
[~2016-07-13] MED LIST changes: +ERGO2000 PO; +FLC1T PO; +MEMA28CA PO; -MORPHINE PUMP; +MORPHINE PUMP IV; +Oxygen
[2016-07-13 15:33] LABS: BASOPHILS % (AUTO) 0 % (0-2); EOSINOPHILS # (AUTO) 0.1 10^3uL; EOSINOPHILS % (AUTO) 1 % (0-4); LYMPHOCYTES # (AUTO) 1.7 X10^3; MEAN CORPUSCULAR VOLUME 94 FL (80-100); MEAN PLATELET VOLUME 10.9 FL (6.0-9.5); MONOCYTES # (AUTO) 1.1 X10^3; MONOCYTES % (AUTO) 9 % (3-11); NEUTROPHILS # (AUTO) 9.3 X10^3; NEUTROPHILS % (AUTO) 76 % (51-67); PLATELET COUNT 194 10^3uL (150-450); WHITE BLOOD COUNT 12.26 10^3uL (4.0-11.0)
[2016-07-13 15:50] LABS: ALBUMIN 3.7 g/dL (3.4-5.0); CALCULATED IONIZED CALCIUM 3.9 mg/dL (3.8-4.6); TOTAL PROTEIN 8.1 g/dL (6.4-8.5)
== END ==
LOC: LAB 15:14
PROVIDERS: ATTEND Physician Assistant Surgical
DX: Z79.899 Other long term (current) drug therapy (principal); R40.4 Transient alteration of awareness
CPT/HCPCS: 80053; 80162; 80177; 85025

== ENCOUNTER → 2016-07-13 | Outpatient (CLI) | payer MEDICARE ==
--- NOTE | 2016-07-13 16:15 | Diagnostic Imaging Report ---
PROCEDURE: CT head without contrast. TECHNIQUE: Multiple contiguous axial images were obtained through the brain without the use of intravenous contrast. INDICATION: Multiple falls. COMPARISON: 06/28/2015. FINDINGS: There is generalized cortical atrophy. Ventricles are not dilated. There is no intracranial hemorrhage. No extra-axial fluid collection. Basal cisterns are clear. CP angles appear normal. Pituitary is not enlarged. The mastoid air cells are clear. Paranasal sinuses are clear where visualized. Bone windows show no calvarial fractures. IMPRESSION: Generalized cortical atrophy with no acute intracranial abnormalities. This was called to [place] in urgent care. Dictated by: Dictated on workstation # [id number]
--- NOTE | 2016-07-13 16:25 | Diagnostic Imaging Report ---
EXAM: LUMBOSACRAL SPINE 4 VIEWS OR > INDICATION: Fall. Back pain. COMPARISON: Lumbar spine CT without contrast 10/19/2012. Abdominal radiographs 06/20/2015. FINDINGS: There are five lumbar type vertebral bodies. There is moderate to advanced left apex lumbar curvature centered at L3-L4. Stable moderate rightward listhesis of L2 on L3. Vertebral body heights appear maintained. There are laminectomies at L3-L5. Moderate to advanced degenerative endplate changes most marked at L3-L5. Intrathecal pain pump. The catheter tip remains at the level of L1, similar to the prior exam. The course of the catheter appears intact. Coarse arterial calcifications. Mild compression deformities of the T9 and T10 vertebral bodies appear to be new since the 06/20/2015 abdominal radiographs. Comparison is limited by differences in technique and positioning. IMPRESSION: 1. No acute radiographic findings in the lumbar spine. There are moderate to advanced spondylotic changes. 2. Mild compression deformities of the T9 and T10 vertebral bodies appear to be new since the 06/20/2015 abdominal radiographs. This could be confirmed with thoracic spine MRI without contrast. Dictated by: Dictated on workstation # [id number]
--- NOTE | 2016-07-13 17:33 | Diagnostic Imaging Report ---
INDICATION: Fall. Complaining of left hip pain. FINDINGS: Bony pelvis is intact. SI joints are symmetrical with moderate sclerosis. Pubic symphysis is in good alignment. Femoral heads are in normal articulation bilaterally. No fractures of the hips demonstrated. Moderate degenerative changes noted. IMPRESSION: Diffuse degenerative changes with no evidence of acute fracture. Dictated by: Dictated on workstation # [id number]
== END ==
LOC: RAD 15:20
PROVIDERS: ATTEND Physician Assistant Surgical
DX: R41.82 Altered mental status, unspecified (principal); W01.190A Fall on same level from slipping, tripping and stumbling with subsequent striking against furniture, initial encounter; M54.5 Low back pain; M25.552 Pain in left hip
CPT/HCPCS: 70450; 72110; 72170

== ENCOUNTER → 2016-07-25 | Outpatient (REF) | payer MEDICARE ==
[~2016-07-25] MED LIST changes: +CITA40TA19 PO; -D50KC PO; +ERGO2000 PO; +FLC1T PO; +LEVE250T18 PO; +MEMA28CA PO; +NITR100C3 PO; +Oxygen; +[UNRECOGNIZED DRUG - CODE] PO
[2016-07-25 10:08] LABS: BILIRUBIN,URINE Negative (Negative); COLOR,URINE Yellow; GLUCOSE, URINE (UA) Negative (Negative); LEUKOCYTE ESTERASE, URINE 2+ (Negative); UROBILINOGEN,URINE 0.2 mg/dL (0.2-1.0)
[2016-07-25 10:16] LABS: CLARITY,URINE Slightly Cloudy; URINE CENTRIFUGED VOLUME 12 mL
[2016-07-25 10:17] LABS: RBC,URINE 20-50 /HPF
== END ==
LOC: LAB 09:57
PROVIDERS: ATTEND Family Medicine
DX: N39.0 Urinary tract infection, site not specified (principal)
CPT/HCPCS: 81003; 81015; 87077; 87088; 87186